=== PATIENT | female | born 1990 | race Caucasian/White ===

== ENCOUNTER 2021-11-05 08:05 | Emergency (ER) | payer MEDICAID ==
[~2021-11-05] VITALS: Ht 162.6 cm; Wt 63.5 kg
[2021-11-05 08:05] VITALS: BP_SYST 150
--- NOTE | 2021-11-05 08:14 | NUR ---
BROUGHT IN TO BED #3 AND TRIAGED. REPORT GIVEN TO DANY
--- NOTE | 2021-11-05 08:19 | NUR ---
PT COMES TO ER WITH C/O EPIGASTRIC PAIN WITH NAUSEA/VOMITTING SINCE YESTERDAY. REPORTS A HIATAL HERNIA FOR SEVERAL WEEKS, ON FLEXERIL AND DICLOFENAC. RESP EVEN AND UNLABORED, ON RA @98%. SKIN W/D/I.
[2021-11-05] MEDS ORDERED: ONDANSETRON 4 MG ODT TAB PO ONE (08:30)
[2021-11-05 08:44] LABS: BASOPHILS % (AUTO) 0.1 % (0.0-2.0); HEMATOCRIT 35.3 % (36-48); HEMOGLOBIN 12.3 g/dL (12.0-16.0); LYMPHOCYTES # (AUTO) 0.5 K/uL (1.0-5.5); LYMPHOCYTES % (AUTO) 3.9 % (20.5-51.5); MEAN CORPUSCULAR HEMOGLOBIN 35 pg (27-31); MEAN CORPUSCULAR HGB CONC 35 % (32-36); MEAN CORPUSCULAR VOLUME 101 fL (79.0-98.0); MONOCYTES # (AUTO) 0.6 K/uL (0.0-1.0); MONOCYTES % (AUTO) 4.8 % (1.7-9.3); NEUTROPHILS # (AUTO) 11.2 K/uL (1.8-7.7); NEUTROPHILS % (AUTO) 91.2 % (40.0-70.0); PLATELET COUNT (AUTO) 217 K/uL (130-430); RED CELL DISTRIBUTION WIDTH 14.8 % (9.0-15.0); WHITE BLOOD COUNT (AUTO) 12.2 K/uL (4.8-10.8)
[2021-11-05 08:46] LABS: BILIRUBIN,URINE 1+ (NEGATIVE); CLARITY/URINE CLEAR (CLEAR); COLOR,URINE YELLOW (YELLOW); GLUCOSE,URINE NEGATIVE (NEGATIVE); KETONES,URINE 2+ (NEGATIVE); LEUKOCYTE ESTERASE ,URINE NEGATIVE (NEGATIVE); NITRITE, URINE NEGATIVE (NEGATIVE); PROTEIN URINE 2+ (NEGATIVE); UROBILINOGEN,URINE 0.2 (0.2-1.0)
[2021-11-05 08:53] LABS: BLOOD, URINE TRACE (NEGATIVE)
[2021-11-05 09:06] LABS: ANION GAP 13 (5-15); CALCIUM 8.3 mg/dL (8.4-11.0); CHLORIDE 101 mmol/L (98-107); CREATININE 0.65 mg/dL (0.55-1.30); GLUCOSE 121 mg/dL (70-99); POTASSIUM 3.4 mmol/L (3.5-5.1); SODIUM SERUM 136 mmol/L (136-145); UREA NITROGEN, BLOOD 11 mg/dL (8-21)
[2021-11-05 09:07] LABS: GFR AFRICAN AMERICAN 137 mL/min (>90)
[2021-11-05 09:13] LABS: ALANINE AMINOTRANSFERASE 17 U/L (12-78); ALBUMIN 4.3 g/dL (3.4-4.8); AMYLASE 478 U/L (0-100); ASPARTATE AMINOTRANSFERASE 48 U/L (10-37); C-REACTIVE PROTEIN QUANT 0.5 mg/dL (0-0.5); TOTAL BILIRUBIN 1.6 mg/dL (0.0-1.0)
[2021-11-05 09:19] LABS: BACTERIA,URINE FEW /HPF (None Seen); COARSE GRANULAR CASTS,URINE 0-10 /LPF (None Seen); MUCUS,URINE 1+ /LPF (None Seen)
[2021-11-05 09:23] LABS: BARBITURATE, URINE NEGATIVE (NEG <=200); BENZODIAZEPINE, URINE NEGATIVE (NEG <=150); CANNABINOID, URINE POSITIVE (NEG <=50); COCAINE, URINE NEGATIVE (NEG <=150); METHAMPHETAMINES SCREEN,URINE NEGATIVE (NEG <=500); OPIATE, URINE NEGATIVE (NEG <=100); PHENCYCLIDINE SCREEN,URINE NEGATIVE (NEG <=25); UR TRICYCLIC ANTIDEPRESSANTS NEGATIVE (NEG <=300); URINE AMPHETAMINE NEGATIVE (NEG <=500); URINE METHADONE NEGATIVE (NEG <=200); URINE OXYCODONE SCREEN NEGATIVE (NEG <=100); URINE PROPOXYPHENE SCREEN NEGATIVE (NEG <=300)
[2021-11-05 09:26] LABS: LIPASE 5384 U/L (73-393)
[2021-11-05] MEDS ORDERED: NACL 0.9% 1,000 ML IV ONE (09:45)
--- NOTE | 2021-11-05 09:46 | NUR ---
LIPASE ELEVATED, DR DANIELS INFORMED, NEW ORDERS RECEIVED.
--- NOTE | 2021-11-05 09:49 | NUR ---
NOTIFIED ED ADMITTING REGARDING DR. DANIELS'S REQUEST FOR ADMISSION/TRANSFER. PER DR. DANIELS, PT IS STABLE FOR TRANSFER. WILL CONTACT [employer] RELATIONS DIRECTOR REGARDING THIS MATTER. PER [facility]: JUDI FINE/MOI- [facility]
--- NOTE | 2021-11-05 09:51 | NUR ---
PT INFORMED OF PLAN OF CARE FOR ADMISSION, VERBALIZED UNDERSTANDING. COVID TEST DONE
--- NOTE | 2021-11-05 09:55 | NUR ---
# 20 gauge angiocath placed to right AC. Use of asceptic technique. Opsite placed over site. Blood return noted. Blood for lab drawn from site. Flushed with 10 cc of normal saline. No evidence of infiltration noted. Patient tolerated well. IVF started NS Bolus.
--- NOTE | 2021-11-05 10:21 | NUR ---
[facility] LABEL MAKER CALLED BACK REGARDING PT STATUS. STATED THEY WILL CALL FOR PEER TO PEER WITH DR. DANIELS. AWAITING CALL. SPOKE TO YOLA
--- NOTE | 2021-11-05 11:00 | NUR ---
DR. HARRISON, [facility], CALLED BACK TO SPEAK TO DR. DANIELS REGARDING PT STATUS.
[2021-11-05] MEDS ORDERED: DICL75TA5 PO (11:08)
[2021-11-05] MEDS ORDERED: FAMO20TA8 PO (11:09)
--- NOTE | 2021-11-05 11:09 | NUR ---
NO ACUTE CHNAGES IN CONDITION, PT IN NAD. RESPP EVEN AND UNLABORED, ON RA @98%. SFATEY PRECAUTIONS IN PLACE.
[2021-11-05] MEDS ORDERED: CYCL10TA24 PO (11:10)
--- NOTE | 2021-11-05 11:10 | NUR ---
Med. Reconciliation completed and Belongings inventoried.
--- NOTE | 2021-11-05 11:17 | NUR ---
[facility] REQUESTED FAX OF [facility] FAX #: [phone] ATTN: YOLA
--- NOTE | 2021-11-05 11:59 | NUR ---
TRANSFER INFO [facility] RM: [id number] ACCEPTING: Dr. Burton REPORT #: [phone] spoke to Kae
--- NOTE | 2021-11-05 13:36 | NUR ---
NO ACUTE CHNAGES IN CONDITION, PT IN NAD. REPORTS FEELING BETTER, NO VOMITING AT THSI TIME. VSS
--- NOTE | 2021-11-05 14:01 | NUR ---
TRANSFER CONSENT SIGNED BY PT, WAITING FOR ETA FOR [facility] FOR TRANSFER
--- NOTE | 2021-11-05 15:09 | NUR ---
ETA 1600 WITH [employer]
--- NOTE | 2021-11-05 16:39 | NUR ---
Patient to be transferred to [facility]. Is being transferred due to higher level of care. Receiving facility has accepting physician and available space. ER physician has signed transfer form. Patient or responsible green party has agreed to transfer and signed form. Patient belongings inventoried and will be sent with patient. Copy of nursing notes, lab reports, EKG, Physicians Orders and X-rays to be sent with patient. Report called to at receiving facility. Receiving physician is . ambulance service has been called for transfer. ETA is 1600
[2021-11-05 17:01] VITALS: BP_SYST 141
== END 2021-11-05 16:39 | disposition home or self-care (01) ==
LOC: SED 08:05
DX: K85.90 Acute pancreatitis without necrosis or infection, unspecified (principal); R10.13 Epigastric pain; R11.10 Vomiting, unspecified; Z79.899 Other long term (current) drug therapy; Z20.822 Contact with and (suspected) exposure to COVID-19
CPT/HCPCS: 99284; 74176; 96360; 87426; 80307; 80053; 82150; 84703; 83690; 85025; 86140; 87086; 84484; 36415; 76376; 81025; 83605; 81000; Q0162; J7030